=== PATIENT | male | born 1935 | race Two or more races ===

== ENCOUNTER 2021-10-19 20:06 | Emergency (ER) | payer OTHER ==
[~2021-10-19] VITALS: Ht 162.6 cm; Wt 60.8 kg
--- NOTE | 2021-10-19 20:20 | NUR ---
[id number]. PAIN ON R INGUINAL HERNIA AND BLOATEDNESS. NO BM X 4 DAYS. PATIENT ALERT AND ORIENTED X3. BROUGHT IN BY STRETCHER. IN BED 12 AWAITING MD NEGRON.
--- NOTE | 2021-10-19 20:49 | NUR ---
BLOOD COLLECTED AND SENT TO LAB
[2021-10-19 20:57] LABS: BASOPHILS # (AUTO) 0.1 K/uL (0.0-0.2); BASOPHILS % (AUTO) 0.4 % (0.0-2.0); EOSINOPHILS % (AUTO) 0.9 % (0.0-6.0); HEMATOCRIT 42 % (39-51); HEMOGLOBIN 13.7 g/dL (13.5-17.5); LYMPHOCYTES # (AUTO) 0.9 K/uL (0.8-4.8); MEAN CORPUSCULAR HGB CONC 33 g/dl (31.0-36.0); MEAN CORPUSCULAR VOLUME 82 fL (80-96); MONOCYTES # (AUTO) 1.1 K/uL (0.1-1.30); MONOCYTES % (AUTO) 9.1 % (2.0-12.0); NEUTROPHILS # (AUTO) 10.2 K/uL (1.8-8.9); NEUTROPHILS % (AUTO) 82.6 % (43.0-81.0); PLATELET COUNT (AUTO) 228 K/uL (150-450); RED BLOOD CELL COUNT(AUTO) 5.13 MIL/uL (4.5-6.0); WHITE BLOOD COUNT (AUTO) 12.3 K/uL (4.3-11.0)
[2021-10-19] MEDS ORDERED: IV NS 0.9% 500 ML BAG IV ONE (21:00)
[2021-10-19 21:21] LABS: CALCIUM, SERUM 8.9 mg/dL (8.5-10.1); CREATININE 0.7 mg/dL (0.6-1.3); POTASSIUM 3.6 mmol/L (3.5-5.1)
[2021-10-19 21:26] LABS: ALBUMIN 3.1 g/dL (3.4-5.0); BILIRUBIN,DIRECT 0.2 mg/dL (0.0-0.2); BILIRUBIN,TOTAL 0.8 mg/dL (0.2-1.0); TOTAL PROTEIN, SERUM 6.9 g/dL (6.4-8.2)
--- NOTE | 2021-10-19 21:40 | NUR ---
COVID SWAB DONE AND SENT TO LAB
--- NOTE | 2021-10-19 21:48 | NUR ---
[facility] PAGED PER DR CHOUDHARY.
--- NOTE | 2021-10-20 00:33 | NUR ---
S/W OPAL FROM [facility] [place] PT ACCEPTED TO [facility] , THEY WILL CALL US BACK WITH ETA
--- NOTE | 2021-10-20 01:02 | NUR ---
PT IS GOING TO [facility]. VIA [facility] ETA @ [id number]
--- NOTE | 2021-10-20 01:02 | NUR ---
CALL [phone] FOR REPORT. PT GOING TO ER. PT IS GOING TO BE UNDER THE CARE OF DR. WARNER
--- NOTE | 2021-10-20 01:51 | NUR ---
PATIENT REFUSED TO KEEP IV INTACT, AND DEMANDED WE TAKE IT OUT BEFORE HIS TRANSFER.
[2021-10-20 01:52] VITALS: BP 131/68
== END 2021-10-20 01:53 | disposition short-term general hospital (02) ==
LOC: ER 20:20
DX: K40.30 Unilateral inguinal hernia, with obstruction, without gangrene, not specified as recurrent (principal); K56.609 Unspecified intestinal obstruction, unspecified as to partial versus complete obstruction; J43.9 Emphysema, unspecified; E78.5 Hyperlipidemia, unspecified; Z88.6 Allergy status to analgesic agent; Z88.0 Allergy status to penicillin; Z95.5 Presence of coronary angioplasty implant and graft; Z20.822 Contact with and (suspected) exposure to COVID-19; E87.1 Hypo-osmolality and hyponatremia; E11.65 Type 2 diabetes mellitus with hyperglycemia; E87.8 Other disorders of electrolyte and fluid balance, not elsewhere classified; D72.829 Elevated white blood cell count, unspecified; R91.8 Other nonspecific abnormal finding of lung field
CPT/HCPCS: 99285; 74176; 96360; 87426; 85025; 80048; 83605; 83690; 80076; 36415; 85730; J7040; C9803